=== PATIENT | female | born 1995 | race Two or more races ===

== ENCOUNTER → 2019-09-06 | Outpatient (CLI) | payer OTHER ==
[2016-08-11 13:05] VITALS: BP 101/64
[~2019-09-06] MED LIST: FAMO-63 PO; PRED50TA PO
--- NOTE | 2019-09-07 15:07 | KCIC ---
Transabdominal and endovaginal pelvic ultrasound without comparison for lost IUD strings. TECHNIQUE AND FINDINGS: Real-time grayscale and color and spectral Doppler evaluation of the pelvic organs is performed from a transabdominal and endovaginal approach. The urinary bladder is largely decompressed, providing an inadequate acoustic window for transabdominal imaging, with limited visualization of the pelvic organs. From the endovaginal approach, the uterus is well visualized, and measures 7.0 x 4.2 x 2.7 cm. No focal myometrial abnormalities are identified. No cervical abnormality is seen. An IUD is present within the uterine fundus. The endometrium measures 2 mm in thickness. The right ovary measures 2.7 x 2.9 x 2.0 cm and demonstrates normal blood flow with normal follicular character. The left ovary is not seen. No adnexal masses are identified and there is no free fluid. IMPRESSION: 1. No sonographically discernible pelvic abnormality. An IUD is present within the uterus. Electronically signed by: Omero Coronel MD (09/07/2019 3:04 PM) [id number]
== END | disposition home or self-care (01) ==
LOC: KCIC US 13:21
PROVIDERS: ATTEND Nurse Practitioner Women's Health
DX: Z30.431 Encounter for routine checking of intrauterine contraceptive device (principal)
CPT/HCPCS: 76830; 76856

== ENCOUNTER → 2020-12-05 | Outpatient (CLI) | payer BC ==
[2016-08-11 13:05] VITALS: BP 101/64
[~2020-12-05] MED LIST changes: +CHOL500045 PO; +FLUO10CA13 PO; +PROP10TA PO; +TRAZ-118 PO
== END ==
LOC: LAB 11:03
PROVIDERS: ATTEND Obstetrics & Gynecology
DX: Z01.812 Encounter for preprocedural laboratory examination (principal); Z20.822 Contact with and (suspected) exposure to COVID-19
CPT/HCPCS: U0003

== ENCOUNTER 2021-05-15 07:25 | Day surgery (SDC) | payer OTHER ==
[~2021-05-15] VITALS: Ht 157.5 cm; Wt 61.0 kg
[~2021-05-15 07:25] MED LIST changes: +HYDROmorphone 2 MG/ML VIAL IVP PRN; +IV RINGERS,LACTATED 1000ML 1,000 ML IV SCH; +LURA20TA PO; +MORPHINE SULFATE 2 MG/ML INJ. IVP PRN; +PROCHLORPERAZINE 10 MG/2 ML VIAL. IVP PRN; +fentaNYL PF VIAL 100 MCG/2 ML VIAL IVP PRN
[2021-05-15 07:52] VITALS: BP 122/64
--- NOTE | 2021-05-15 08:47 | PDOC1 ---
MANAGER AUDIO H&P Date of Admission: Date of Admission: History of Present Illness: 25y G0 presents for scheduled surgery. She originally presented for an IUD removal. Attempt to removal the IUD in the office were unsuccessful. The pt was counselled on removal in the OR. 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 Periods : regular SH: no tob, no EtOH FH: noncontributory Medications: Meds: Current Medications Medications (Trade) Dose Ordered Sig/Lilliana Route PRN Reason Start Time Stop Time Status Last Admin Dose Admin Ringer's Solution 1,000 ml @ 30 mls/hr Q24H IV 05/15/21 06:00 05/15/21 17:59 05/15/21 08:09 Allergies: Coded Allergies: No Known Drug Allergies (Unverified , 05/15/21) Physical Exam: Vital Signs: Vital Signs Date Time Temp Pulse Resp B/P (MAP) Pulse Ox O2 Delivery O2 Flow Rate FiO2 05/15/21 08:04 98.3 86 18 122/64 99 Room Air 98.3 PE: GENERAL: No apparent distress. Alert and oriented. HEENT: Head normocephalic, atraumatic. NECK: Supple LUNGS: Clear to auscultation. HEART: RRR, S1, S2 present, pulses intact ABDOMEN: Soft, positive bowel sounds. EXTREMITIES: No cyanosis or edema. NEUROLOGIC: Normal speech, normal tone PSYCHIATRIC: Normal affect, normal mood. SKIN: No ulceration. Labs: Laboratory Tests Test 05/15/21 07:03 POC Urine HCG, Qualitative Hcg negative (Negative) Assessment & Plan: A/P 25y G0 presents for IUD removal Contraception - Kristine in place. Attempted to remove in the office, unable to tolerate. Will attempt H/S removal ANAM SOLER MD May 15, 2021 08:47
[2021-05-15] MEDS ORDERED: PROPOFOL 10 MG/ML (20ML) VIAL. IV ONE (09:03)
[2021-05-15] MEDS ORDERED: LIDOCAINE 2% PF 5 ML VIAL. ONE (09:03)
[2021-05-15] MEDS ORDERED: MIDAZOLAM HCL/PF 2 MG/2 ML VIAL. ONE (09:03)
[2021-05-15] MEDS ORDERED: fentaNYL PF VIAL 100 MCG/2 ML VIAL ONE (09:03)
[2021-05-15] MEDS ORDERED: ONDANSETRON PF 4 MG/2 ML VIAL. ONE (09:37)
[2021-05-15] MEDS ORDERED: FAMOTIDINE 20 MG/2 ML VIAL ONE (09:37)
[2021-05-15] MEDS ORDERED: DEXAMETHASONE SOD PHOS 4 MG/ML VIAL ONE (09:37)
[2021-05-15] MEDS ORDERED: KETOROLAC 30 MG/ML VIAL. ONE (09:47)
[2021-05-15] MEDS ORDERED: SEVOFLURANE 31 TO 60 MINUTES. IH ONE (09:48)
[2021-05-15] MEDS ORDERED: OXYC1TAB15 PO (09:57)
[2021-05-15] MEDS ORDERED: IBUP-1060 PO (09:57)
[2021-05-15] MEDS ORDERED: oxyCODONE/APAP 5/325 1 TAB TABLET PO ONE (10:30)
[2021-05-15] MEDS ORDERED: IBUPROFEN 400 MG TABLET. PO ONE (10:30)
--- NOTE | 2021-05-15 10:37 | PDOC4 ---
OPERATIVE NOTE: PreOp Dx: Retained IUD PostOp Dx: same Procedure: H/S removal of IUD Surgeon: Robbie Soler Anesthesia: LMA EBL: 10 cc Fluids: 700 cc UOP: 15 cc Complication: none Findings: IUD intrauterine. Strings manipulated to cervical canal Path: Kristine IUD ANAM SOLER MD May 15, 2021 10:37
[2021-05-15 10:45] VITALS: BP 100/59
--- NOTE | 2021-05-15 11:05 | OP ---
DATE OF SURGERY: 05/15/2021 PREOPERATIVE DIAGNOSIS: Retained intrauterine device. POSTOPERATIVE DIAGNOSIS: Retained intrauterine device. PROCEDURE: Hysteroscopic removal of IUD. SURGEON: Reynaldo Smith MD. ANESTHESIA: LMA. ESTIMATED BLOOD LOSS: 10 mL. FLUIDS: 700 mL. URINE OUTPUT: 15 mL. COMPLICATIONS: None. FINDINGS: Intrauterine device found to be at the uterine fundus. Strings manipulated to cervical canal. PATHOLOGY: Kristine IUD. DESCRIPTION OF PROCEDURE: The patient was taken to the operating room where LMA was placed without difficulty. The patient was prepped and draped in normal sterile fashion. A speculum was placed in the vagina and a single tooth tenaculum was then used to grasp the anterior lip of the cervix. At that point, the sound was placed. This measured the uterus to be about 6 cm. The cervical os was dilated to allow for the hysteroscope to be placed. Once the hysteroscope was placed, it was visualized that the intrauterine device was at the uterine fundus. With manipulation and the fluid, the IUD strings could be manipulated to the cervical canal. The strings were still too short to exit the cervical os. The scope was then removed. Graspers were then used to grab the IUD strings in the cervical canal. They were able to be grasped and the IUD was taken out intact. At that point, the tenaculum was removed. Minimal bleeding was noted at the tenaculum site. Good hemostasis was noted. The patient was then brought to the recovery room in stable condition. DARLENE DR: Jennifer TID: [id number] [facility]ITALColette
== END 2021-05-15 11:15 | disposition home or self-care (01) ==
LOC: SURG 07:25
PROVIDERS: ATTEND Obstetrics & Gynecology
DX: Z30.432 Encounter for removal of intrauterine contraceptive device (principal); Z79.899 Other long term (current) drug therapy; Z72.89 Other problems related to lifestyle; Z98.890 Other specified postprocedural states
CPT/HCPCS: 58562; 81025; J1100; J1885; J2250; J2405; J2704; J3010; J3490; A4930